=== PATIENT | male | born 1975 | race Caucasian/White ===

== ENCOUNTER 2022-05-13 15:05 | Emergency (ER) | payer BC, SELFPAY ==
--- NOTE | ~2022-05-13 | XR_ITS ---
EXAMINATION: XR chest 2V DATE: 05/13/2022 15:32 INDICATION: Cough TECHNIQUE: PA and lateral views of the chest are obtained. COMPARISON: None available FINDINGS: The lungs are free of acute opacities. No pleural effusion or pneumothorax. The cardiomedia stinal silhouette is normal. There is mild thoracic spondylosis. IMPRESSION: 1. No acute cardiopulmonary abnormality. Reviewed, dictated and finalized at location A.
--- NOTE | 2022-05-13 15:07 | ED.URI ---
HPI - URI/Sore Throat General Chief Complaint: Upper Respiratory Infection Stated Complaint: Chest Congestion/Cough Time Seen by Provider: 05/13/22 15:07 Source: patient Mode of arrival: ambulatory Limitations: no limitations History of Present Illness HPI Narrative: Mr. Dougherty is a 46-year-old male patient presenting to the clinic today with complaints of a cough and chest congestion x10 days. He reports the first 3 days consisted of a productive cough however now is the cough is nonproductive. He also reports chills at night. He is concerned about pneumonia. Denies any known exposure to anyone with COVID, flu, or strep. Reports that he has felt some wheezing and rattling in his chest as well as a popping sensation over his throat. MD elicited complaint: cough and other (Chest congestion) Related Data Allergies Allergy/AdvReac Type Severity Reaction Status Date / Time azithromycin Allergy Nausea and Verified 05/13/22 15:20 Vomiting Review of Systems Review of Systems: Pertinent positives per HPI. Patient denies any rash, headache, visual changes, dizziness, shortness of breath, chest pain, palpitations, nausea, vomiting, diarrhea, constipation, abdominal pain, or any urinary issues. PMFSH Comments At the time of my signature, I reviewed and agree with the nursing past medical, surgical, social, and family history. There is no relevant family history pertinent to the patient complaint. Exam Narrative: General: Well-developed, well nourished, in no apparent distress Head: Normocephalic, atraumatic Eyes: Pupils equally round and reactive to light bilaterally, EOM intact, sclera and conjunctive clear, no discharge, lids normal Ears: TMs intact and clear, ear canals clear, no drainage, grossly hearing normal. Nose: Nares patent, no discharge, no inflammation, no sinus tenderness. Mouth: Oral pharynx without lesions or masses, good dentition, MMM. Neck: Supple, trachea midline, no enlargement of anterior or posterior cervical nodes, no thyroid masses or goiter palpable. Cardio: Regular rate and rhythm, s1 and s2 normal, no murmur appreciated. Resp: Clear to auscultation bilaterally, no rhonchi, rales, wheezing or rubs Course Course Emergency Course: Portions of this record may have been created with voice recognition software. Level of Care: Express Care Visit Vital Signs Vital signs: Vital signs reviewed MDM - URI/Sore Throat MDM Narrative Medical decision making narrative: At the time of visit patient is resting comfortably on the exam table. Chest x-ray was completed to rule out any pneumonia and was negative. I suspect the patient has acute bronchitis and will treat with a course of albuterol inhaler and prednisone. Supportive measures were discussed with the patient he voiced understanding of discharge instruction. Differential Diagnosis Differential diagnosis: Likely upper respiratory infection, sinusitis, viral infection, bronchitis, influenza, pharyngitis and other (COVID) Imaging Data My impression: Chest x-ray negative for pneumonia. Radiologist's impression: [facility] [address] [place] [address] XRay Report Signed Patient: Polly Clifford : 09/06/1989 MR#: [id number] Age/Sex: 32 / F Acct:[id number] Loc: [facility]? ? ADM Date: 05/13/22Attending Dr: Ordering Physician: Mitchell Churchill APRN Date of Service: 05/13/22 Procedure(s): XR finger 1st RT min 2V Accession Number(s): [id number] cc: Mitchell Churchill APRN~ EXAMINATION: XR finger 1st RT min 2V INDICATION: Right first finger pain TECHNIQUE: Three views of the right first finger are obtained. COMPARISON: None available FINDINGS: Bone alignment is normal. There is no fracture. The soft tissues are unremarkable. IMPRESSION: 1. No acute osseous abnormality. Reviewed, dictated and f
[2022-05-13 15:14] VITALS: BP 130/79; PULSE 70; RESP 16; TEMP 37.1; O2SAT 100
[2022-05-13 15:20] VITALS: BP 130/79; PULSE 70; RESP 16; TEMP 37.1; O2SAT 100
== END 2022-05-13 15:51 | disposition home or self-care (01) ==
LOC: EXPBETH 15:11
PROVIDERS: Emergency Provider Nurse Practitioner Family
DX: J40 Bronchitis, not specified as acute or chronic (principal)
CPT/HCPCS: 71046; 99213; G0463